=== PATIENT | male | born 2005 | race Two or more races ===

== ENCOUNTER 2023-12-27 16:51 | Emergency (ER) | payer BC ==
[~2023-12-27] VITALS: Ht 182.9 cm; Wt 74.8 kg
== END 2023-12-27 18:28 | disposition home or self-care (01) ==
LOC: ER 16:52
DX: S01.81XA Laceration without foreign body of other part of head, initial encounter (principal); W19.XXXA Unspecified fall, initial encounter; Y93.89 Activity, other specified; Y92.89 Other specified places as the place of occurrence of the external cause; Y99.8 Other external cause status